=== PATIENT | female | born 1985 | race Two or more races ===

== ENCOUNTER 2021-02-14 15:38 | Inpatient (IN) | payer OTHER ==
[~2021-02-14] VITALS: Ht 157.5 cm; Wt 107.3 kg
[2021-02-14] MEDS ORDERED: ONDANSETRON HCL 4 MG/2 ML VIAL IV ONE (15:45)
[2021-02-14] MEDS ORDERED: MORPHINE SULFATE 4 MG/ML SYR/VIAL IV ONE (15:45)
[2021-02-14] MEDS ORDERED: LORazepam 2MG/ML-1ML VIAL IV ONE (16:15)
[2021-02-14 17:04] LABS: Basophils # (auto) 0.1 10 ^3/uL (0-0.2); Basophils % (auto) 0.7 % (0.0-2.0); Mean Corpuscular Volume 70.3 fL (80.0-100.0)
[2021-02-14 17:06] LABS: Eosinophils # (auto) 0.3 10 ^3/uL (0-0.8); Eosinophils % (auto) 2.4 % (0.0-7.0); Hematocrit 33.4 % (36.0-46.0); Hemoglobin 11.1 g/dL (12.2-16.2); Lymphocytes # (auto) 2.5 10 ^3/uL (0.4-5.4); Lymphocytes % (auto) 22.3 % (10.0-50.0); Mean Corpuscular Hemoglobin 23.2 pg (28.0-32.0); Mean Corpuscular Hgb Conc. 33.1 g/dL (32.0-36.0); Monocytes # (auto) 1.2 10 ^3/uL (0-1.3); Monocytes % (auto) 10.6 % (0.0-12.0); Platelet Count (auto) 473 10^3/uL (140-450); Red Blood Cells 4.76 10^6/uL (4.0-5.20); Red Cell Distribution Width 15.9 % (11.8-14.3)
[2021-02-14 17:16] LABS: Alanine Aminotransferase 127 U/L (13-56); Albumin 3.2 g/dL (3.4-5.0); Anion Gap 5 (5-15); Aspartate Aminotransferase 156 U/L (15-37); BUN/Creatinine Ratio 12.9; Blood Urea Nitrogen 8 mg/dL (7-18); Calcium 8.4 mg/dL (8.5-10.1); Carbon Dioxide 29 mmol/L (21-32); Chloride 104 mmol/L (98-107); GFR African American 139 mL/min; GFR Non-African American 115 mL/min; Glucose 108 mg/dL (74-106); Magnesium 1.9 mg/dL (1.6-2.6); Potassium 3.6 mmol/L (3.5-5.1); Sodium 138 mmol/L (136-145)
[2021-02-14 17:25] LABS: Alkaline Phosphatase 124 U/L (45-117); Bilirubin, Total 0.5 mg/dL (0.2-1.0); Total Protein 7.9 g/dL (6.4-8.2)
[2021-02-14] MEDS ORDERED: ONDANSETRON HCL 4 MG/2 ML VIAL IV PRN (20:00)
[2021-02-14] MEDS ORDERED: DEXTROSE (50%) 50ML SYRG IV PRN (20:00)
[2021-02-14] MEDS ORDERED: MORPHINE SULF INJ 2 MG/ML SYRINGE 1ML IV PRN (20:00)
[2021-02-14] MEDS ORDERED: NITROGLYCERIN 0.4 MG SL TAB SL PRN (20:00)
[2021-02-14] MEDS ORDERED: LORazepam 2MG/ML-1ML VIAL IV PRN (20:00)
[2021-02-14] MEDS ORDERED: HYDROcodone-ACET 10/325MG TAB PO PRN (20:00)
[2021-02-14] MEDS: D5W/SOD CHL 0.45% 1,000 ML IV SCH (20:22)
[2021-02-14] MEDS: levETIRAcetam 500 MG TAB PO SCH (21:44)
[2021-02-15] VITALS (7 sets, daily range): BP systolic 105–136; BP diastolic 58–83
[2021-02-15] MEDS: D5W/SOD CHL 0.45% 1,000 ML IV SCH ×4 (02:40→22:14)
[2021-02-15] MEDS ORDERED: METF-371 PO (04:47)
[2021-02-15] MEDS ORDERED: LEVE250T18 PO (04:48)
[2021-02-15] MEDS: InsuLIN REG 1unit/0.01ml Soln (100units/ml) SC SCH ×5 (05:21→23:24)
[2021-02-15] MEDS: ACCU-CHEK COMFORT CURVE STRIP VI SCH ×5 (05:26→23:24)
[2021-02-15] MEDS ORDERED: ADENOSINE 90 MG in GIVE UN-DILUTED 0 ML IV STA (08:39)
[2021-02-15] MEDS: ENOXAPARIN SOD 40 MG/0.4 ML SYRINGE SC SCH (10:00)
[2021-02-15] MEDS: ASPirin-EC 81 mg tab PO SCH (10:00)
[2021-02-15] MEDS: levETIRAcetam 500 MG TAB PO SCH ×2 (10:00→22:13)
[2021-02-15] MEDS ORDERED: ASPirin-EC 81 mg tab PO SCH (20:06)
[2021-02-15] MEDS ORDERED: ENOXAPARIN SOD 40 MG/0.4 ML SYRINGE SC SCH (20:06)
[2021-02-16 05:00] VITALS: BP 106/60
[2021-02-16] MEDS: D5W/SOD CHL 0.45% 1,000 ML IV SCH ×3 (05:39→19:18)
[2021-02-16] MEDS: InsuLIN REG 1unit/0.01ml Soln (100units/ml) SC SCH ×4 (05:40→23:56)
[2021-02-16] MEDS: ACCU-CHEK COMFORT CURVE STRIP VI SCH ×4 (05:40→23:54)
[2021-02-16 09:00] VITALS: BP 111/67
[2021-02-16] MEDS: ENOXAPARIN SOD 40 MG/0.4 ML SYRINGE SC SCH (10:04)
[2021-02-16] MEDS: levETIRAcetam 500 MG TAB PO SCH ×2 (10:04→21:44)
[2021-02-16] MEDS: ASPirin-EC 81 mg tab PO SCH (10:04)
[2021-02-16 13:00] VITALS: BP 107/60
[2021-02-16 17:00] VITALS: BP 129/83
[2021-02-16 22:00] VITALS: BP 106/64
[2021-02-17] MEDS: D5W/SOD CHL 0.45% 1,000 ML IV SCH ×2 (01:20→11:09)
[2021-02-17 04:49] VITALS: BP 116/66
[2021-02-17] MEDS: InsuLIN REG 1unit/0.01ml Soln (100units/ml) SC SCH ×2 (06:00→12:29)
[2021-02-17] MEDS: ACCU-CHEK COMFORT CURVE STRIP VI SCH ×2 (06:25→12:28)
[2021-02-17 07:49] LABS: Potassium 3.6 mmol/L (3.5-5.1)
[2021-02-17 07:56] LABS: BUN/Creatinine Ratio 14.3; Bilirubin, Total 0.4 mg/dL (0.2-1.0); Total Protein 6.9 g/dL (6.4-8.2)
[2021-02-17 08:37] VITALS: BP 131/74
[2021-02-17] MEDS: ASPirin-EC 81 mg tab PO SCH (10:49)
[2021-02-17] MEDS: levETIRAcetam 500 MG TAB PO SCH (10:49)
[2021-02-17] MEDS: ENOXAPARIN SOD 40 MG/0.4 ML SYRINGE SC SCH (10:49)
[2021-02-17 12:51] VITALS: BP 102/47
[2021-02-17 14:18] VITALS: BP 102/47
[2021-02-17 15:49] LABS: Hepatitis A Ab IgM Negative; Hepatitis B Core IgM Negative; Hepatitis B Surface Antigen Negative (Negative)
[2021-02-21 13:52] LABS: Hepatitis C Antibody Negative (Negative)
== END 2021-02-17 15:06 | DRG 101 ==
LOC: EDBD 15:38 → ER 15:38 → EEVIPCON 15:38 → TELE 20:18 → TELE-EAST 22:20
PROVIDERS: ADMIT Internal Medicine; ATTEND Internal Medicine
DX: G40.909 Epilepsy, unspecified, not intractable, without status epilepticus (principal); R07.89 Other chest pain; E11.9 Type 2 diabetes mellitus without complications; J45.909 Unspecified asthma, uncomplicated; K75.9 Inflammatory liver disease, unspecified; E78.5 Hyperlipidemia, unspecified; K76.0 Fatty (change of) liver, not elsewhere classified; Z20.822 Contact with and (suspected) exposure to COVID-19; K80.20 Calculus of gallbladder without cholecystitis without obstruction
CPT/HCPCS: 36415; 71045; 76705; 78226; 78452; 80053; 80074; 81025; 82542; 82962; 83735; 84443; 84484; 85025; 85049; 85379; 87081; 87426; 93005; 93017; 96374; 96375; 99291; G0378; J0153; J1815; J2405